=== PATIENT | male | born 1960 | race African-American/Black ===

== ENCOUNTER 2017-05-22 15:03 | Inpatient (IN) | payer BC ==
[~2017-05-22] VITALS: Ht 175.3 cm; Wt 87.4 kg
[~2017-05-22 15:03] MED LIST: FLEXERIL10 MG PO; MIRALAX255 GM PO; NAPROSYN500 MG PO; NOHOMEMEDS; PREDNISONE10 MG PO; VALIUM2 MG PO
[2017-05-22 16:26] LABS: EOSINOPHIL (%) 0.2 % (0-5); HEMATOCRIT 44.5 % (38.0-50.0); IMMATURE GRANULOCYTE (%) 0.1 % (0.0-0.7); INSTRUMENT ABS NEUTROPHIL CT 7.9 K/uL; LYMPHOCYTE COUNT 0.6 K/uL (1.0-2.8); MCH 29.4 PG (29.0-34.0); MCHC 34.2 G/DL (30.0-36.0); MCV 86.1 FL (86-99); MEAN PLAT.VOLUME 10.8 uM^3 (9.0-12.4); MONOCYTE (%) 4.6 % (3-12); MONOCYTE COUNT 0.4 K/uL (0-0.8); NEUTROPHIL (%) 88.5 % (45-76); NEUTROPHIL COUNT 7.9 K/uL (1.8-6.4); PLATELET COUNT 155 K/uL (156-360); RBC DIS.WIDTH-CV 11.9 % (11.8-14.6); RBC DIS.WIDTH-SD 37.8 % (39-53); RED BLOOD COUNT 5.17 M/uL (4.00-5.50)
[2017-05-22 16:32] LABS: ADD MIUA? YES; BILIRUBIN NEGATIVE; BLOOD MODERATE; COLOR YELLOW ((YELLOW)); GLUCOSE (STRIP) NEGATIVE; KETONES NEGATIVE; LEUKOCYTES MODERATE; NITRITE NEGATIVE; PROTEIN (STRIP) NEGATIVE; SPECIFIC GRAVITY 1.018 (1.000-1.030); UROBILINOGEN 0.2 MG/DL (0.2-1.0)
[2017-05-22 16:37] LABS: CHLORIDE 106 mEq/L (99-109); POTASSIUM 3.8 mEq/L (3.7-5.4); SODIUM 139 mEq/L (136-147)
[2017-05-22 16:38] LABS: GLUCOSE 107 mg/dL (70-99)
[2017-05-22 16:40] LABS: ANION GAP 9 MEQ/L (2-14)
[2017-05-22 16:42] LABS: GFR ESTIMATE (CALCULATED) > 59 mL/min/
[2017-05-22 16:43] LABS: UREA NITROGEN (BUN) 18 mg/dL (9-23)
[2017-05-22 16:58] LABS: BACTERIA NONE SEEN /HPF; CASTS NONE SEEN /LPF; CRYSTALS NONE SEEN; EPITHELIAL CELLS NONE SEEN /HPF; MUCUS NONE SEEN /LPF; UCUL ADDED? YES; WHITE BLOOD CELLS 20-30 /HPF (0-5)
[2017-05-22] MEDS ORDERED: FLAGYL250 MG PO (17:53)
[2017-05-22] MEDS ORDERED: CEFTIN500 MG PO (17:53)
[2017-05-22] MEDS ORDERED: OXYCODONE HCL10 MG PO (17:54)
[2017-05-22] MEDS ORDERED: PRILOSEC OTC20 MG PO (18:23)
[2017-05-22 21:14] LABS: TROP-I INTERPRETATION NEGATIVE; TROPONIN-I < 0.01 ng/mL (0.0-0.30)
[2017-05-22 22:51] VITALS: BP 121/65
[2017-05-23 03:29] VITALS: BP 109/58
[2017-05-23 06:16] LABS: ANION GAP 7 MEQ/L (2-14); CHLORIDE 104 MEQ/L (99-109); GFR ESTIMATE (CALCULATED) > 59 mL/min/; GLUCOSE 136 mg/dL (70-99); POTASSIUM 3.8 MEQ/L (3.7-5.4); SAMPLE HEMOLYSIS CHECK 0; SAMPLE ICTERIC CHECK 0; SAMPLE LIPEMIA CHECK 0; SODIUM 136 MEQ/L (136-147); UREA NITROGEN (BUN) 17 mg/dL (9-23)
[2017-05-23 06:17] LABS: TROP-I INTERPRETATION NEGATIVE; TROPONIN-I 0.02 ng/mL (0.0-0.30)
[2017-05-23 08:01] VITALS: BP 102/54
[2017-05-23 09:00] LABS: HEMATOCRIT 39.8 % (38.0-50.0); MCH 30.4 PG (29.0-34.0); MCHC 34.7 G/DL (30.0-36.0); MCV 87.7 FL (86-99); PLATELET COUNT 134 K/uL (156-360); RBC DIS.WIDTH-CV 11.9 % (11.8-14.6); RBC DIS.WIDTH-SD 38.5 % (39-53); RED BLOOD COUNT 4.54 M/uL (4.00-5.50); WHITE BLOOD COUNT 9.3 K/uL (4.1-10.2)
[2017-05-23 15:56] VITALS: BP 167/80
[2017-05-23 16:27] VITALS: BP 147/80
[2017-05-23 17:19] LABS: TROP-I INTERPRETATION NEGATIVE; TROPONIN-I 0.02 ng/mL (0.0-0.30)
[2017-05-23 22:09] LABS: TROP-I INTERPRETATION NEGATIVE; TROPONIN-I 0.02 ng/mL (0.0-0.30)
[2017-05-24 00:07] VITALS: BP 114/59
[2017-05-24 05:47] LABS: TROP-I INTERPRETATION NEGATIVE; TROPONIN-I 0.01 ng/mL (0.0-0.30)
[2017-05-24 07:43] VITALS: BP 126/79
[2017-05-24 08:18] LABS: HEMATOCRIT 42.1 % (38.0-50.0); MCH 29.6 PG (29.0-34.0); MCHC 33.5 G/DL (30.0-36.0); MCV 88.3 FL (86-99); MEAN PLAT.VOLUME 11.7 uM^3 (9.0-12.4); PLATELET COUNT 137 K/uL (156-360); RBC DIS.WIDTH-SD 38.7 % (39-53); RED BLOOD COUNT 4.77 M/uL (4.00-5.50); WHITE BLOOD COUNT 8.9 K/uL (4.1-10.2)
[2017-05-24 09:01] LABS: ANION GAP 11 MEQ/L (2-14); CHLORIDE 106 MEQ/L (99-109); POTASSIUM 3.9 MEQ/L (3.7-5.4); SAMPLE HEMOLYSIS CHECK 0; SAMPLE ICTERIC CHECK 0; SAMPLE LIPEMIA CHECK 0; SODIUM 140 MEQ/L (136-147)
[2017-05-24 09:06] LABS: GFR ESTIMATE (CALCULATED) > 59 mL/min/; GLUCOSE 113 mg/dL (70-99); UREA NITROGEN (BUN) 14 mg/dL (9-23)
[2017-05-24 15:46] VITALS: BP 141/71
[2017-05-24 23:40] VITALS: BP 118/76
[2017-05-25 05:23] LABS: HEMATOCRIT 42.2 % (38.0-50.0); MCH 29.3 PG (29.0-34.0); MCHC 33.6 G/DL (30.0-36.0); PLATELET COUNT 141 K/uL (156-360); RBC DIS.WIDTH-CV 11.9 % (11.8-14.6); RBC DIS.WIDTH-SD 38.3 % (39-53); RED BLOOD COUNT 4.85 M/uL (4.00-5.50); WHITE BLOOD COUNT 8.7 K/uL (4.1-10.2)
[2017-05-25 05:47] LABS: ANION GAP 8 MEQ/L (2-14); CHLORIDE 103 MEQ/L (99-109); GFR ESTIMATE (CALCULATED) > 59 mL/min/; GLUCOSE 98 mg/dL (70-99); POTASSIUM 3.9 MEQ/L (3.7-5.4); SAMPLE HEMOLYSIS CHECK 0; SAMPLE ICTERIC CHECK 0; SAMPLE LIPEMIA CHECK 0; SODIUM 137 MEQ/L (136-147); UREA NITROGEN (BUN) 15 mg/dL (9-23)
[2017-05-25 08:49] VITALS: BP 119/73
[2017-05-25 16:04] VITALS: BP 132/70
[2017-05-25 23:39] VITALS: BP 114/68
[2017-05-26 08:20] VITALS: BP 109/72
[2017-05-26] MEDS ORDERED: CIPRO500 MG PO (10:51)
[2017-05-26] MEDS ORDERED: BISACODYL5 MG PO (10:53)
[2017-05-26] MEDS ORDERED: BACTRIM,SEPT1 TABLET PO (10:53)
== END 2017-05-26 12:34 | disposition home or self-care (01) | DRG 728 ==
LOC: EME 15:03 → EDOF 19:15 → 3EAST 19:15 → ENRESERV 19:19 → 3EAST 22:34
PROVIDERS: Hospitalist; Physician Assistant
DX: N41.9 Inflammatory disease of prostate, unspecified (principal); N40.0 Benign prostatic hyperplasia without lower urinary tract symptoms; K21.9 Gastro-esophageal reflux disease without esophagitis; R51 Headache; R78.81 Bacteremia; K62.89 Other specified diseases of anus and rectum; R30.0 Dysuria; Z93.3 Colostomy status; Z80.42 Family history of malignant neoplasm of prostate; Z89.429 Acquired absence of other toe(s), unspecified side
CPT/HCPCS: 71020; 74177; 80048; 81003; 83605; 84484; 85025; 85027; 87040; 87086; 93005; 99281; 99285; J0696; J1644; J1885; J1956; J2270; J2405; J2543; J3370; J7050; J7120; Q0177